=== PATIENT | male | born 1970 | race Caucasian/White ===

== ENCOUNTER → 2020-08-11 | Outpatient (CLI) | payer OTHER | LOC: KOH-I 14:19 | DX: R10.9 Unspecified abdominal pain (principal); K80.20 Calculus of gallbladder without cholecystitis without obstruction; K40.90 Unilateral inguinal hernia, without obstruction or gangrene, not specified as recurrent | CPT/HCPCS: 74176 ==

== ENCOUNTER 2020-10-01 03:29 | Emergency (ER) | payer OTHER ==
[2020-10-01 04:36] LABS: BUN/CREATININE RATIO 8 (0-10)
[2020-10-01 05:44] LABS: HEMOGLOBIN 14.1 gm/dl (14.0-17.5); RED BLOOD COUNT 4.66 M/UL (4.20-5.50); WHITE BLOOD COUNT 10.5 K/UL (4.5-11.0)
== END 2020-10-01 06:23 | disposition home or self-care (01) ==
LOC: ER1 03:29
PROVIDERS: Family Medicine
DX: R07.9 Chest pain, unspecified (principal); M79.7 Fibromyalgia; F41.9 Anxiety disorder, unspecified; G47.00 Insomnia, unspecified; E11.9 Type 2 diabetes mellitus without complications
CPT/HCPCS: 71046; 80053; 82550; 82553; 83874; 84484; 85025; 85379; 93005; 99285